=== PATIENT | female | born 1995 | race Caucasian/White ===

== ENCOUNTER 2017-04-30 12:16 | Emergency (ER) | payer BC, OTHER ==
[~2017-04-30 12:16] MED LIST: HYDR-2758 PO; LEVO750T31 PO; NITR100C PO; TRAM50TA PO
[2017-04-30] MEDS ORDERED: IV NORMAL SALINE 1,000ML 1,000 ML IV SCH (12:45)
[2017-04-30 12:53] LABS: BASO # 0.1 x10^3/uL (0.0-0.2); BASO % 1 % (0-3); EOS # 0.1 x10^3/uL (0.0-0.7); EOS % 1 % (0-3); HEMATOCRIT 43.6 % (36.0-47.0); HEMOGLOBIN 15.1 g/dL (12.0-15.5); LYMPH # 3.7 x10^3/uL (1.0-4.8); LYMPH % 37 % (24-48); MEAN CORPUSCULAR HEMOGLOBIN 31 pg (25-35); MEAN CORPUSCULAR HGB CONC 35 g/dL (31-37); MEAN CORPUSCULAR VOLUME 88 fL (79-100); MONO % 10 % (0-9); NEUT # 5.1 x10^3uL (1.8-7.7); NEUT % 51 % (31-73); PLATELET COUNT 270 x10^3/uL (140-400); RED BLOOD COUNT 4.97 x10^6/uL (3.50-5.40); RED CELL DISTRIBUTION WIDTH 12.7 % (11.5-14.5); WHITE BLOOD COUNT 9.9 x10^3/uL (4.0-11.0)
[2017-04-30 12:59] LABS: PREG TEST PT QUAL NEGATIVE (NEG)
[2017-04-30 13:05] LABS: ALBUMIN 4.3 g/dL (3.4-5.0); CALCIUM 10.8 mg/dL (8.5-10.1); CREATININE 0.6 mg/dL (0.6-1.0); DIRECT BILIRUBIN 0.2 mg/dL (0.0-0.2); GFR 127.5; POTASSIUM 3.9 mmol/L (3.5-5.1); TOTAL BILIRUBIN 0.7 mg/dL (0.2-1.0); TOTAL PROTEIN 7.6 g/dL (6.4-8.2)
[2017-04-30] MEDS ORDERED: ONDANSETRON PF 4 MG/2 ML VIAL. ONE (13:34)
[2017-04-30] MEDS ORDERED: HYDROmorphone PF 1 MG/ML DISP.SYRIN ONE (13:34)
[2017-04-30] MEDS: HYDROmorphone PF 1 MG/ML DISP.SYRIN IV PRN ×2 (13:37→14:21)
[2017-04-30 13:45] LABS: BACTERIA,URINE MOD /HPF (0-FEW); BILIRUBIN,URINE NEG (NEG); CLARITY,URINE HAZY; COLOR,URINE AMBER; GLUCOSE,URINE NEG (NEG); NITRITE,URINE NEG (NEG); UROBILINOGEN,URINE 0.2 mg/dL (0.2 mg/dL)
[2017-04-30] MEDS ORDERED: ONDANSETRON PF 4 MG/2 ML VIAL. IV ONE (13:45)
[2017-04-30] MEDS ORDERED: IOHEXOL 300 MG/ML 75 ML VIAL. IV ONE (13:45)
[2017-04-30 13:46] LABS: SQUAMOUS EPITHELIAL CELL,UR MOD /LPF
[2017-04-30] MEDS ORDERED: ONDA4TAB7 PO (14:04)
[2017-04-30] MEDS ORDERED: HYDR-2758 PO (14:04)
--- NOTE | 2017-04-30 14:04 | PHYS DOC ---
Past History Past Medical History: Ovarian Cyst, Other Past Surgical History: No Surgical History Smoking: Non-smoker Alcohol Use: None Drug Use: None Adult General Chief Complaint Chief Complaint: ABDOMINAL PAIN HPI HPI 21-year-old female presenting to the emergency department today with left lower quadrant abdominal pain and back pain. Her pain is a sharp shooting pain that is a throbbing sensation and without alleviating factors. Moderate pain. She denies nausea vomiting fevers or chills. She denies vaginal bleeding or being . Review of systems is negative for chest pain shortness of breath fevers chills nausea or vomiting. She denies blood in her stools. All other review of systems is negative unless otherwise noted in history of present illness. ED course: 21-year-old female presenting with left lower quadrant abdominal pain. Upon arrival the patient is afebrile with a normal heart rate. She appears to be in mild discomfort on examination. Otherwise she is alert nontoxic and well-appearing. On physical examination she has mild left-sided CVA tenderness with minimal left lower quadrant tenderness. No rebound tenderness or guarding. Nontender suprapubic region. Blood work obtained. IV established. IV fluids nausea and pain medications ordered. CT the abdomen pelvis obtained. Patient has left nephrolithiasis. Consistent with the patient' s symptoms. Patient's pain improved on reexamination. We did find a small nodule on the patient's lingula that the radiologist wanted repeat CT scan on an outpatient basis. I communicated this to the patient. She demonstrated verbal understanding. I also provided her a printed out handout of the radiology report so that she can bring it to her primary care physician's office. The patient was then discharged home in stable condition to follow up with their primary care physician over the next 2-3 days. They were to return if their symptoms worsened or if they were concerned for any reason. Face-to- face discharge instructions and return precautions were given. Patient's questions were answered to their satisfaction. Patient is comfortable plan. Review of Systems Review of Systems SEE ABOVE. Current Medications Current Medications Current Medications Medications (Trade) Dose Ordered Sig/[facility] Start Time Stop Time Status Last Admin Dose Admin Fentanyl Citrate (Fentanyl 2ml Vial) 25 mcg PRN Q15MIN PRN 04/30/17 12:45 05/01/17 12:44 04/30/17 13:17 25 MCG Hydromorphone HCl (Dilaudid) 0.5 mg PRN Q30MIN PRN 04/30/17 13:45 04/30/17 13:37 0.5 MG Iohexol (Omnipaque 300 Mg/ml) 75 ml 1X ONCE 04/30/17 13:45 04/30/17 13:46 DC Ondansetron HCl (Zofran) 4 mg 1X ONCE 04/30/17 13:45 04/30/17 13:46 DC 04/30/17 13:37 4 MG Sodium Chloride 1,000 ml @ 1,000 mls/hr Q1H 04/30/17 12:45 04/30/17 13:44 DC 04/30/17 12:48 1,000 MLS/HR Allergies Allergies Allergies Coded Allergies Type Severity Reaction Last Updated Verified No Known Drug Allergies 04/30/17 No Physical Exam Physical Exam SEE ABOVE Constitutional: Well developed, well nourished, no acute distress, non-toxic appearance. [] HENT: Normocephalic, atraumatic, bilateral external ears normal, oropharynx moist, no oral exudates, nose normal. [] Eyes: PERRLA, EOMI, conjunctiva normal, no discharge. Neck: Normal range of motion, no tenderness, supple, no stridor. Cardiovascular:Heart rate regular rhythm, no murmur [] Lungs & Thorax: Bilateral breath sounds clear to auscultation Abdomen: SEE ABOVE. Negative McBurney's point. Negative Marte sign. Skin: Warm, dry, no erythema, no rash. Back:SEE ABOVE Extremities: No tenderness, no cyanosis, no clubbing, ROM intact, no edema. Neurologic: Alert and oriented X 3, normal motor function, normal sensory function, no focal deficits noted. [] Psychologic: Affect normal, judgement normal, mood normal. [] Current Patient Data Vital Signs Vital Signs Date Time Temp Pulse Resp B/P (MAP) Pulse Ox O2 Delivery O2 Flow Rate FiO2 04/30/17 12:25 97.0 63 16 98 Room Air Lab Results Laboratory Tests Test 04/30/17 12:40 04/30/17 13:15 White Blood Count 9.9 x10^3/uL (4.0-11.0) Red Blood Count 4.97 x10^6/uL (3.50-5.40) Hemoglobin 15.1 g/dL (12.0-15.5) Hematocrit 43.6 % (36.0-47.0) Mean Corpuscular Volume 88 fL (79-100) Mean Corpuscular Hemoglobin 31 pg (25-35) Mean Corpuscular Hemoglobin Concent 35 g/dL (31-37) Red Cell Distribution Width 12.7 % (11.5-14.5) Platelet Count 270 x10^3/uL (140-400) Neutrophils (%) (Auto) 51 % (31-73) Lymphocytes (%) (Auto) 37 % (24-48) Monocytes (%) (Auto) 10 % (0-9) H Eosinophils (%) (Auto) 1 % (0-3) Basophils (%) (Auto) 1 % (0-3) Neutrophils # (Auto) 5.1 x10^3uL (1.8-7.7) Lymphocytes # (Auto) 3.7 x10^3/uL (1.0-4.8) Monocytes # (Auto) 1.0 x10^3/uL (0.0-1.1) Eosinophils # (Auto) 0.1 x10^3/uL (0.0-0.7) Basophils # (Auto) 0.1 x10^3/uL (0.0-0.2) Sodium Level 141 mmol/L (136-145) Potassium Level 3.9 mmol/L (3.5-5.1) Chloride Level 106 mmol/L (98-107) Carbon Dioxide Level 25 mmol/L (21-32) Anion Gap 10 (6-14) Blood Urea Nitrogen 10 mg/dL (7-20) Creatinine 0.6 mg/dL (0.6-1.0) Estimated GFR (Cockcroft-Gault) 127.5 Glucose Level 112 mg/dL (70-99) H Calcium Level 10.8 mg/dL (8.5-10.1) H Total Bilirubin 0.7 mg/dL (0.2-1.0) Direct Bilirubin 0.2 mg/dL (0.0-0.2) Aspartate Amino Transferase (AST) 13 U/L (15-37) L Alanine Aminotransferase (ALT) 23 U/L (14-59) Alkaline Phosphatase 130 U/L (46-116) H Total Protein 7.6 g/dL (6.4-8.2) Albumin 4.3 g/dL (3.4-5.0) Serum Test, Qualitative Negative (NEG) Urine Collection Type Unknown Urine Color Claudia Urine Clarity Hazy Urine pH 5.0 Urine Specific [place] >=1.030 Urine Protein Trace (NEG-TRACE) Urine Glucose (UA) Neg mg/dL (NEG) Urine Ketones (Stick) 15 mg/dL (NEG) Urine Blood Large (NEG) Urine Nitrite Neg (NEG) Urine Bilirubin Neg (NEG) Urine Urobilinogen Dipstick 0.2 mg/dL (0.2 mg/dL) Urine Leukocyte Esterase Neg (NEG) Urine RBC 11-20 /HPF (0-2) Urine WBC 5-10 /HPF (0-4) Urine Squamous Epithelial Cells Mod /LPF Urine Bacteria Mod /HPF (0-FEW) Urine Mucus Mod /LPF EKG EKG [] Radiology/Procedures Radiology/Procedures [] Course & Med Decision Making Course & Med Decision Making Pertinent Labs and Imaging studies reviewed. (See chart for details) [] Dragon Disclaimer Dragon Disclaimer This electronic medical record was generated, in whole or in part, using a voice recognition dictation system. Departure Departure: Impression: Primary Impression: Abdominal pain Disposition: HOME, SELF-CARE Condition: STABLE Referrals: KRISTI CHAUDHRY (PCP) Patient Instructions: Abdominal Pain (Nonspecific) Additional Instructions: Thank you for allowing us to participate in your care today. Followup with your primary care physician in 3 days if your symptoms do not improve. Call your Primary Doctor tomorrow and inform them of your visit today. If you do not have a primary care provider you can ask for a list of our primary care providers. Return to the emergency department you have any new or concerning findings. This should be evaluated by the primary care physician and any necessary consulting services for continued management within a few days after discharge. Return to emergency room if you have any new or concerning symptoms including but not limited to fever, chills, nausea, vomiting, intractable pain, any new rashes, chest pain, shortness of air, uncontrolled bleeding, difficulty breathing, and/or vision loss. You may have been prescribed medication that can change in your level of thinking and ability to operate machinery. These medications include hydrocodone and Ativan. Also, Benadryl has been known to do this as well. Be sure to check with your pharmacist and ask if the medications you've prescribed can affect your level of consciousness. I recommend not operating heavy machinery or driving while on medication such as these. Scripts Hydrocodone Bit/Acetaminophen (HYDROCODONE-APAP 5-325 ) 1 Each Tablet 1 TAB PO PRN Q6HRS Y for PAIN, #10 TAB 0 Refills Prov: WILFRID DONOVAN MD 04/30/17 Ondansetron Hcl (ZOFRAN) 4 Mg Tablet 1 TAB PO PRN Q6HRS Y for NAUSEA, #6 TAB Prov: WILFRID DONOVAN MD 04/30/17 WILFRID DONOVAN MD Apr 30, 2017 14:04
--- NOTE | 2017-04-30 14:36 | RAD ---
CT of the abdomen and pelvis with contrast 04/30/2017 Indication: Abdominal pain, left-sided Comparison study: CT of the abdomen and pelvis December 18, 2013. Technique: Multidetector CT imaging of the abdomen and pelvis was performed following the administration of intravenous contrast. Findings: Partially visualized lung bases demonstrate a nodular opacity in the lingula measuring 1 cm in diameter. Small satellite nodular opacities appear to be present. The appearance is nonspecific and could represent a mild inflammatory or infectious process. Both benign or malignant nodules cannot completely excluded. Finding is new since comparison study. There is a 2 to 3 mm stone at the level of the left ureterovesicular junction.. Minimal hydronephrosis and prominence of the left ureter is noted. Mild enhancement of the left ureter is also noted. The bladder is decompressed. Mild hyperdensity noted along the falciform ligament liver likely representing focal fatty infiltration. Liver is otherwise unremarkable. Finding is stable from prior study. Spleen is unremarkable. Adrenal glands are within normal limits. Pancreas is grossly normal. There is no evidence of bowel obstruction. No acute inflammatory change involving the visualized bowel is identified. Appendix is unremarkable. No acute osseous changes are identified. 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 No acute osseous changes are identified. Impression: 1. 2 to 3 mm stone at the left ureterovesicular junction with very minimal left hydronephrosis and prominence of the ureter. Mild ureteral enhancement is noted. Findings could be reactive. Upper urinary tract infection is not excluded. 2. New 1 cm nodular opacity in the lingula. Smaller surrounding satellite nodular opacities are noted. Finding may be infectious or inflammatory in etiology however a true pulmonary nodule cannot be excluded. Recommended correlation with any pulmonary symptoms and short-term follow-up CT chest for further evaluation. PQRS Compliance Statement: One or more of the following individualized dose reduction techniques were utilized for this examination: 1. Automated exposure control 2. Adjustment of the mA and/or kV according to patient size 3. Use of iterative reconstruction technique
[2017-04-30 14:54] VITALS: BP 120/57
== END 2017-04-30 14:54 | disposition home or self-care (01) ==
LOC: ER 12:16
DX: R10.32 Left lower quadrant pain (principal); M54.5 Low back pain
CPT/HCPCS: 36415; 74177; 80048; 80076; 81001; 81025; 84703; 85025; 87086; 96361; 96374; 96375; 96376; 99285; J1170; J2405; J3010; Q9967; J7030